=== PATIENT | female | born 1930 | race Two or more races ===

== ENCOUNTER 2016-09-03 11:40 | Emergency (ER) | payer MEDICARE, OTHER ==
--- NOTE | 2016-09-03 12:58 | CT ---
Exams: CT chest, abdomen and pelvis without contrast COMPARISON: Chest radiograph 03/14/2014 INDICATION: Fall, right-sided pain. TECHNIQUE: CT examination of the chest, abdomen and pelvis was obtained without contrast. Findings: Several right-sided rib fractures are identified. There is a minimally displaced fracture involving the right posterior seventh rib with adjacent nondisplaced fractures involving the right posterior fifth and sixth ribs. Additional nondisplaced fractures are seen involving the right anterolateral second through eighth ribs. Some of these may be old but several do appear acute. Older/subacute fractures seen within the right posterolateral 11th rib. There is no pneumothorax or pleural effusion. There is no pulmonary contusion. There is bibasilar atelectasis or scarring, left greater than right. Calcified granulomas noted within left lower lobe. Mild to moderate centrilobular emphysema is appreciated. A few old rib fractures are seen within the left lateral chest wall. Sagittal alignment of the spine is maintained. There is osteopenia. No vertebral body compression fracture. There is no evidence of solid organ injury to the liver. There is no free fluid or perihepatic hematoma. Gallbladder is absent. A few small hyperdense cysts are noted within both kidneys. There is no hydronephrosis. Large calcification seen within the upper pole the left kidney. Pancreas is within normal limits. There is a 1.9 cm low-density lesion within the left adrenal gland compatible with an adenoma. Atheromatous but nonaneurysmal abdominal aorta. Uterus present and within normal limits. There is no adnexal mass. Urinary bladder unremarkable. There is colonic diverticulosis without evidence of diverticulitis. No displaced pelvic fracture is identified. IMPRESSION: Several right-sided rib fractures as above. Although some are old, there are several which are acute. There is no pneumothorax or hemothorax. No evidence of posttraumatic injury within the abdomen or pelvis. Several incidental findings as above. Report was uploaded to the EMR at 1254 hours 09/03/2016.
== END 2016-09-03 15:34 | disposition home or self-care (01) ==
LOC: ED 11:40
DX: S22.41XA Multiple fractures of ribs, right side, initial encounter for closed fracture (principal); W01.0XXA Fall on same level from slipping, tripping and stumbling without subsequent striking against object, initial encounter